=== PATIENT | male | born 1990 | race Two or more races ===

== ENCOUNTER 2020-12-29 09:28 | Outpatient (CLI) | payer OTHER | END 2020-12-29 10:28 | disposition home or self-care (01) | LOC: PPH VACUNA 09:28 | PROVIDERS: ATTEND Emergency Medicine Pediatric Emergency Medicine | DX: Z23 Encounter for immunization (principal) ==

== ENCOUNTER 2021-02-15 10:00 | Emergency (ER) | payer OTHER ==
[~2021-02-15] VITALS: Ht 167.6 cm; Wt 95.3 kg
[2021-02-15] MEDS ORDERED: LIPITOR20 MG PO (10:23)
[2021-02-15] MEDS ORDERED: KETO10TA2 PO (16:26)
== END 2021-02-15 16:47 ==
LOC: ER 10:00
DX: N50.812 Left testicular pain (principal); Z03.818 Encounter for observation for suspected exposure to other biological agents ruled out
CPT/HCPCS: 74177; 76870; Q9965

== ENCOUNTER → 2021-04-19 | Outpatient (CLI) | payer OTHER ==
[~2021-04-19] MED LIST: KETO10TA2 PO; LIPITOR20 MG PO
== END | disposition home or self-care (01) ==
LOC: MRI 09:59
PROVIDERS: ATTEND Surgery
DX: R10.2 Pelvic and perineal pain (principal); K40.90 Unilateral inguinal hernia, without obstruction or gangrene, not specified as recurrent
CPT/HCPCS: 72197

== ENCOUNTER 2023-11-16 12:59 | Day surgery (SDC) | payer OTHER ==
[2023-11-13 08:47] LABS: HEMATOCRIT 45.8 % (39.0-48.0); HEMOGLOBIN 15.7 g/dL (13-16.00); MEAN CELL VOLUME 83.6 fL (80.0-100.00); MEAN CORPUSCULAR HEMOGLOBIN 28.6 pg (27.00-32.0); MEAN CORPUSCULAR HGB CONC 34.3 g/dl (32.0-36.0); PLATELET COUNT 261 K/uL (150-450); RED BLOOD COUNT 5.48 M/uL (4.00-6.00)
[2023-11-13 08:51] LABS: PH,URINE 6.5 (5.0-8.0); URINE APPEARANCE Clear; URINE BILIRRUBIN Negative (NEGATIVE); URINE BLOOD Negative; URINE COLOR Yellow; URINE GLUCOSE Negative (NEGATIVE); URINE KETONE Negative (NEGATIVE); URINE LEUKOCYTE Negative; URINE NITRATE Negative; URINE PROTEIN Negative (NEGATIVE); URINE UROBILINOGEN 0.2 E.U./dl
[2023-11-13 08:53] LABS: URINE RBC 2.9 uL (0.0-20.8)
[2023-11-13 08:58] LABS: URINE EPITHELIAL CELLS 0.4 uL (0.0-38.8)
[2023-11-13 09:15] LABS: INR 1.01; PARTIAL THROMBOPLASTIN TIME 28.2 SECONDS (22.0-34.0); PROTHROMBIN TIME 10.6 SECONDS (9.0-11.5)
[2023-11-13 09:55] LABS: CALCIUM 9.7 mg/dL (8.5-10.1); CREATININE SERUM 0.93 mg/dL (0.70-1.30); GFR 92.46; POTASSIUM 4.34 mEq/L (3.5-5.1)
[2023-11-16] MEDS ORDERED: CEFAZOLIN SODIUM 1,000 MG VIAL ONE (13:33)
[2023-11-16] MEDS ORDERED: TRAMADOL HCL50 MG PO (16:07)
[2023-11-16] MEDS ORDERED: KETO10TA2 PO (16:07)
[2023-11-16] MEDS ORDERED: TYLENOL ARTHRI650 MG PO (16:07)
[2023-11-16] MEDS ORDERED: MIRALAX17 GM PO (16:07)
[2023-11-16] MEDS ORDERED: BUPIVACAINE HCL/MPF 0.5% 30ML VIAL ONE (17:20)
[2023-11-16] MEDS ORDERED: SUGAMMADEX SODIUM 200 MG/2 ML VIAL IV ONE (17:51)
== END 2023-11-16 22:00 | disposition home or self-care (01) ==
LOC: CIR.AMB 12:59
PROVIDERS: ATTEND Surgery
DX: K40.90 Unilateral inguinal hernia, without obstruction or gangrene, not specified as recurrent (principal); K42.9 Umbilical hernia without obstruction or gangrene; I49.9 Cardiac arrhythmia, unspecified
CPT/HCPCS: 49650; 49591; C1781